=== PATIENT | female | born 1995 | race African-American/Black ===

== ENCOUNTER 2020-03-12 03:24 | Emergency (ER) | payer MEDICAID, SELFPAY ==
[~2020-03-12] VITALS: Ht 154.9 cm; Wt 61.2 kg
[2020-03-12] MEDS ORDERED: LORAZEPAM 2MG/ML CPJ IV ONE (04:00)
[2020-03-12] MEDS ORDERED: SODIUM CHLORIDE 0.9% 500 ML IV ONE (04:00)
[2020-03-12 05:23] LABS: BASOPHILS % 0.5 % (0.0-2.0); EOSINOPHILS % 0.5 % (0.0-5.0); HEMATOCRIT. 39.7 % (36.0-48.0); HEMOGLOBIN. 13.4 g/dL (12.0-16.0); LYMPHOCYTES % 15.2 % (20.0-50.0); MEAN CORPUSCULAR HEMOGLOBIN 29.1 pg (28.0-32.0); MEAN CORPUSCULAR VOLUME 86.3 fL (81.0-99.0); MEAN PLATELET VOLUME 7.6 fl (7.4-10.4); MONOCYTES % 6.3 % (2.0-8.0); NEUTROPHILS % 77.5 % (40.0-76.0); PLATELET 318 x1000/uL (130-400); RED BLOOD CELL COUNT 4.61 mill/uL (4.2-5.4); RED CELL DISTRIBUTION WIDTH 17.8 % (11.6-14.6)
[2020-03-12 05:27] LABS: CHLORIDE 106 mEq/L (98-107)
[2020-03-12 05:38] LABS: HCG SCREEN NEGATIVE
[2020-03-12 06:30] LABS: CLARITY URINE CLOUDY (CLEAR); COLOR URINE DK YELLOW (YELLOW); KETONES URINE 1+ (NEGATIVE); LEUKOCYTE ESTERASE URINE 2+ (NEGATIVE); NITRITE URINE NEGATIVE (NEGATIVE); OCCULT BLOOD URINE 2+ (NEGATIVE); PROTEIN URINE 1+ (NEGATIVE); SPECIFIC GRAVITY URINE 1.031 (1.005-1.030)
[2020-03-12 06:56] VITALS: BP 124/71
== END 2020-03-12 06:57 | disposition home or self-care (01) ==
LOC: ER 03:24
DX: R11.2 Nausea with vomiting, unspecified (principal); K59.00 Constipation, unspecified; F41.9 Anxiety disorder, unspecified; I95.9 Hypotension, unspecified; Z20.828 Contact with and (suspected) exposure to other viral communicable diseases
CPT/HCPCS: 36415; 74018; 80053; 81003; 84703; 85025; 87086; 87635; 93005; 96361; 96374; 99285; C9803; J2060; J7040; 99284